=== PATIENT | female | born 1950 | race Caucasian/White ===

== ENCOUNTER → 2021-11-24 11:13 | Outpatient (CLI) | payer OTHER, MEDICAID, SELFPAY ==
[2021-11-24 13:56] LABS: COVID19 -Nasal RAPID Negative (Negative)
== END ==
PROVIDERS: PCP Family Medicine; Visit Provider Surgery
DX: Z20.822 Contact with and (suspected) exposure to COVID-19 (principal); Z01.812 Encounter for preprocedural laboratory examination
CPT/HCPCS: 87635; C9803

== ENCOUNTER 2021-11-25 09:47 | Day surgery (SDC) | payer OTHER, MEDICAID, SELFPAY ==
[2021-11-25] VITALS (7 sets, daily range): BP systolic 101–118; BP diastolic 59–70; PULSE 57–80; RESP 16–18; TEMP 36.1–37; O2SAT 93–98; BMI 26.1
[2021-11-25] MEDS: LACTATED RINGERS 1,000 ML 42 ML IV (10:16)
--- NOTE | 2021-11-25 10:47 | PM.HP.1 ---
History of Present Illness History of Present Illness Date Patient Seen: 11/25/21 Time Patient Seen: 10:47 Date of Onset of Symptoms: 11/25/21 Chief complaint: SDC Narrative: Colon cancer screening. H/o colon polyp last scope. Difficult to communicate with due to developmental delay Patient History Family & Social History Social History: household members none Tobacco & Substance use: Smoking Status Never smoker alcohol intake current alcohol intake frequency holiday/special occasion Substance Use Type does not use Meds Home Medications and Allergies Home Medications Medication Instructions Recorded Confirmed Type peg 3350-electrolytes 236 240 ml PO Q10M #4,000 mL 11/14/21 Rx gram-22.74 gram-6.74 gram-5.86 gram solution (Golytely) metformin 500 mg tablet tab 11/25/21 History sertraline 100 mg tablet tab 11/25/21 History sertraline 50 mg tablet tab 11/25/21 History Allergies Allergy/AdvReac Type Severity Reaction Status Date / Time BEE POLLEN Allergy Severe SWELLING Uncoded 11/25/21 10:08 PENICILLIN Allergy Severe HIVES Uncoded 11/25/21 10:08 Review of Systems Review of Systems ROS: Yes All systems reviewed with the patient and are negative except as otherwise documented Exam Vital Signs (past 8 hours): - 11/25/21 10:00 Temperature 97 F L Pulse Rate 72 Respiratory Rate 18 Blood Pressure 115/68 Pulse Oximetry 97 Oxygen Delivery Method Room Air Oxygen Delivery Method Room Air Const General: cooperative and comfortable HENMT Head: normocephalic and atraumatic Face and sinus: normal facial exam Eyes Sclera: sclerae normal Neck Neck: trachea midline Chest Chest: normal inspection of the chest Resp Effort & Inspection: normal respiratory effort Auscultation: clear to auscultation bilaterally Cardio Rate: regular rate Rhythm: regular rhythm GI Inspection: normal to inspection Neuro General: patient alert and patient oriented x3 Extrem General: normal to inspection and full ROM Psych Appearance: grossly normal Judgment: judgment good Assessment & Plan Assessment & Plan narrative: h/o colon polyp colonoscopy with moderate sedation COVID-19 COVID-19 status: Negative Time Spent With Patient Time with patient: less than 30 minutes Critical Care time: I spent a total of [] minutes of critical care time on this patient's care today; this time is exclusive of procedural time.
--- NOTE | 2021-11-25 11:15 | PM.OP.COLON ---
Operative Date/Time/Diagnoses Date of procedure: 11/25/21 Time of procedure: 11:15 Pre-op diagnosis: Colon cancer screening, possible history of colon polyps Post-op diagnosis: same Procedure & Clinicians Study performed: Colonoscopy with moderate sedation Same procedure as scheduled: Yes Indications: Colon cancer screening, possible history of colon polyps Surgeon: Karine Hill Procedure Notes SCOAP/Timeout: Done Procedure in detail: Preop diagnosis: Colon cancer screening, possible colon polyps in the past Postop diagnosis: Same Operative procedure: Colonoscopy with moderate sedation Anesthetic: Versed 7 mg, fentanyl 150 mcg Surgeon: Nara Hill MD Findings: Severe pretty diverticulosis. No polyps Procedure: Patient placed in lateral position. Rectal exam performed showing large hemorrhoidal tag normal tone. Scope inserted into the rectum advanced to ileocecal valve with minimal difficulty. Insufflation extraction scope and the above findings. Retroflex was included in the rectum. Impression: Severe pandiverticulosis there were large in size. No polyps Plan: Repeat colonoscopy in 10 years unless otherwise indicated by change in family history or clinical condition Sedation minutes: 20 Findings: divertiulosis Specimen(s): none sent Complications: none Impression: Severe diverticulosis of the entire colon. No polyps identified Post-procedure Recommendations: Colonoscopy in 10 years Follow up: as needed Disposition: PACU
[2021-11-25] MEDS: fentaNYL 250 MCG/5 ML INJ 150 MCG IV (11:16)
[2021-11-25] MEDS: MIDAZOLAM 5 MG/5 ML VIAL 7 MG IV (11:17)
--- NOTE | 2021-11-25 12:45 | SUR.PHASEII ---
All discharge instructions reviewed with patient and caregiver, Yvette. Blood sugar 79 on discharge. Asymptomatic. Discharged in stable condition .
== END 2021-11-25 12:43 | disposition home or self-care (01) ==
PROVIDERS: PCP Family Medicine; Referring Provider Surgery; Visit Provider Surgery
PROC: 0DJD8ZZ Inspection of Lower Intestinal Tract, Via Natural or Artificial Opening Endoscopic (ICD-10-PCS; CPT 45378; principal; 2021-11-25 10:45)
DX: Z12.11 Encounter for screening for malignant neoplasm of colon (principal); Z86.010 Personal history of colon polyps; K57.30 Diverticulosis of large intestine without perforation or abscess without bleeding
CPT/HCPCS: G0105; 82962; 99152; J2250; J3010